=== PATIENT | male | born 1985 | race Caucasian/White ===

== ENCOUNTER → 2020-10-09 | Day surgery (SDC) | payer BC ==
[~2020-10-09] MED LIST: Lactated Ringers 1,000 ML IV ONE; Midazolam 1 MG/ML 2 ML SDV ONE; Propofol 200 MG/20 ML SDV ONE; fentaNYL 100 MCG/2 ML SDV ONE
--- NOTE | 2020-10-09 17:30 | EDM.PDOC ---
<Lino Marino G - Last Filed: 10/09/20 17:45> ED HPI GENERAL MEDICAL PROBLEM - General Chief Complaint: ENT Problem Stated Complaint: FOOD STUCK IN THROAT Time Seen by Provider: 10/09/20 17:15 Source of Information: Reports: Patient History Limitations: Reports: No Limitations. 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 He was eating roast beef last night and hasn't been able to even drink since then. Has had things stuck in his throat in the past, but has always past on its own. Is here for another 6 weeks roughly. 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) (none) - Related Data Allergies Allergy/AdvReac Type Severity Reaction Status Date / Time No Known Allergies Allergy Verified 10/09/20 17:10 Home Meds: Home Meds NK [No Known Home Meds] 10/09/20 [History] Social & Family History - Tobacco Use Tobacco Use Status *Q: Current Every Day Tobacco User Years of Tobacco use: 18 Packs/Tins Daily: 0.5 - Caffeine Use Caffeine Use: Reports: Coffee - Alcohol Use Number of Drinks Per Day: 7 - Recreational Drug Use Recreational Drug Use: No ED ROS ENT - Review of Systems Review Of Systems: See Below Constitutional: Reports: No Symptoms HEENT: Reports: No Symptoms Respiratory: Reports: No Symptoms Cardiovascular: Reports: No Symptoms GI/Abdominal: Reports: Vomiting (when he eats/drinks), Other (inability to swallow anything). Denies: Distension, Hematemesis, Hematochezia, Melena, Nausea : Reports: No Symptoms Musculoskeletal: Reports: No Symptoms Skin: Reports: No Symptoms ED EXAM, ENT - Physical Exam Exam: See Below Exam Limited By: No Limitations General Appearance: Alert, WD/WN, No Apparent Distress Eye Exam: Bilateral Eye: Normal Inspection Ears: Normal External Exam, Normal Canal, Hearing Grossly Normal Nose: Normal Inspection, No Blood Mouth/Throat: Normal Inspection, Normal Lips, Normal Oropharynx Head: Atraumatic, Normocephalic Neck: Normal Inspection Respiratory/Chest: No Respiratory Distress, Lungs Clear, Normal Breath Sounds, No Accessory Muscle Use Cardiovascular: Regular Rate, Rhythm, No Edema GI/Abdominal: Normal Bowel Sounds, Soft, Non-Tender, No Distention. No: Distended Back: Normal Inspection Extremities: Normal Inspection Neurological: Alert, Oriented, CN II-XII Intact, Normal Cognition, No Motor /Sensory Deficits Psychiatric: Normal Affect, Normal Mood Skin: Warm, Dry, Intact, Normal Color, No Rash Course - Vital Signs Text/Narrative:: Dr. Colon called @ [id number] Departure - Departure Disposition: Home, Self-Care 01 Condition: Fair Clinical Impression: Impacted esophageal foreign body Qualifiers: Encounter type: initial encounter Qualified Code(s): T18.108A - Unspecified foreign body in esophagus causing other injury, initial encounter - Discharge Information Sepsis Event Note (ED) - Evaluation Sepsis Screening Result: No Definite Risk <Aj Anderson - Last Filed: 10/09/20 19:32> Course - Vital Signs Last Recorded V/S: Last Vital Signs Temp 36.9 C 10/09/20 19:15 Pulse 93 10/09/20 19:15 Resp 16 10/09/20 19:15 BP 144/93 H 10/09/20 19:15 Pulse Ox 95 10/09/20 19:15 - Orders/Labs/Meds Labs: Laboratory Tests 10/09/20 Range/Units 18:59 SARS CoV-2 RNA Rapid SABINO Negative Meds: Medications Discontinued Medications Generic Name Dose Route Start Last Admin Trade Name Amee PRN Reason Stop Dose Admin Fentanyl Confirm 10/09/20 18:34 Fentanyl 100 Mcg/2 Ml Sdv Administered 10/09/20 18:35 Dose 100 mcg .ROUTE .STK-MED ONE Lactated Ringer's 1,000 mls @ 1,000 mls/hr 10/09/20 17:19 10/09/20 17:52 Ringers, Lactated IV 10/09/20 18:18 1,000 mls/hr BOLUS ONE Administration Midazolam HCl Confirm 10/09/20 18:34 Midazolam 1 Mg/Ml 2 Ml Sdv Administered 10/09/20 18:35 Dose 2 mg .ROUTE .STK-MED ONE Propofol Confirm 10/09/20 18:34 Propofol 200 Mg/20 Ml Sdv Administered 10/09/20 18:35 Dose 200 mg .ROUTE .STK-MED ONE - Re-Assessments/Exams Free Text/Narrative Re-Assessment/Exam: 10/09/20 19:31 returns from surgery after having the endoscopy to remove the foreign body. He is able to drink water at this time without any problems. He is awake, alert, fully oriented, and in no acute distress. He is vitally stable. At this time he is suitable for discharge home. He is being accompanied home by a minibus driver. Indications to return to the ED were discussed. Departure - Departure Time of Disposition: 19:32 Sepsis Event Note (ED) - Focused Exam Vital Signs: Vital Signs Temp Pulse Resp BP Pulse Ox 10/09/20 19:15 36.9 C 93 16 144/93 H 95 10/09/20 19:10 91 16 142/89 H 95 10/09/20 19:05 85 16 141/92 H 95 10/09/20 19:00 93 16 128/91 H 95 10/09/20 18:55 36.7 C 114 H 16 129/81 95 10/09/20 17:16 36.4 C 114 H 16 149/104 H 95 10/09/20 17:08 36.4 C 114 H 16 149/104 H 95
--- NOTE | 2020-10-10 13:44 | OR ---
DATE OF PROCEDURE: 10/09/2020 SURGEON: Storm Colon MD PROCEDURE: Esophagogastroduodenoscopy with removal of foreign body. COMPLICATIONS: None. 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 ANESTHESIA: MAC. PREOPERATIVE DIAGNOSIS: Dysphagia. POSTOPERATIVE DIAGNOSIS: Dysphagia. FINDINGS: Foreign body in the esophagus. RISKS: Risks, benefits, alternatives, and limitations including but not limited to infection, bleeding, and perforation were explained to the patient who wished to proceed. PROCEDURE IN DETAIL: The patient was placed in left lateral decubitus position. The EGD scope was introduced and advanced atraumatically into the second part of the duodenum. The food bolus was noted in the proximal esophagus. It was moved into the stomach without difficulty. Visualization was poor due to retained food. No abnormalities were noted. The esophagus appeared slightly inflamed. The patient tolerated the procedure well. Of note, the patient was instructed preoperatively to have an EGD performed when he returns to [place] in approximately 1 month for followup. Storm Colon MD /[id number]
== END ==
LOC: JP.ED 16:49 → JP.SDS 18:24
PROVIDERS: ATTEND Surgery
DX: T18.128A Food in esophagus causing other injury, initial encounter (principal); Z20.822 Contact with and (suspected) exposure to COVID-19
CPT/HCPCS: 87635; 99283; 99284; J2250; J2704; J3010; J7120; U0002